=== PATIENT | female | born 1960 | race Caucasian/White ===

== ENCOUNTER 2017-03-15 14:50 | Emergency (ER) | payer OTHER ==
--- NOTE | ~2017-03-15 | ER ---
PATIENT'S NAME: [facility] AGE: 56 Y [address] ROOM: [place] [id number] LOCATION: [facility] ADMIT DATE: 03/15/2017 ER/Outpatient Report DISCHARGE DATE: FAMILY PHYSICIAN: Jodi Loyola MD ATTENDING PHYSICIAN: Miguel Lujan Time of Patient's Arrival: 1450 hours. Time of Patient's Evaluation: 1455 hours. CHIEF COMPLAINT: Scalp laceration. HISTORY OF PRESENT ILLNESS: This is a 56-year-old female who presents to the ER, who states that she was at a gas station putting air in her tire. She states that there were some workers at the gas station and their ladder fell over and struck her on top of the head. She states it did knock her down and she felt a little bit dazed, but she did not lose consciousness. She denies any neck or back pain. No nausea or vomiting. No other problems at this time. The patient states that she is not up to date on her tetanus shot. ALLERGIES: NO KNOWN ALLERGIES. MEDICATIONS: Unknown. PAST MEDICAL HISTORY: Hypertension. SOCIAL HISTORY: Drinks alcohol occasionally. Denies any smoking use. REVIEW OF SYSTEMS: CONSTITUTIONAL: Denies any change in weight or fatigue. MUSCULOSKELETAL: No weakness or myalgias. SKIN: She has a scalp laceration. PHYSICAL EXAMINATION: VITAL SIGNS: Height 5 feet 3 inches stated, weight 69 kg taken, blood pressure is 194/86, and saturations 98% on room air. [place] Coma Score is 15. GENERAL: Alert, calm, well-developed female, in mild distress. HEENT: Head: Normocephalic. Eyes: Pupils are equal and reactive to light. She does display moist mucous membranes. PATIENT'S NAME: CJ [facility] AGE: 56 Y [address] ROOM: [place], [place] [id number] LOCATION: [facility] ADMIT DATE: 03/15/2017 ER/Outpatient Report DISCHARGE DATE: FAMILY PHYSICIAN: Jodi Loyola MD ATTENDING PHYSICIAN: Miguel Lujan LUNGS: Clear to auscultation bilaterally. No wheezes or crackles. HEART: Regular rate and rhythm. EXTREMITIES: No clubbing or cyanosis. She has full range of motion of all limbs. SKIN: She has a 2-cm scalp laceration noted to the right side of her scalp. It is not actively bleeding at this time. MUSCULOSKELETAL: She has no cervical, thoracic, or lumbar tenderness with palpation. LABORATORY DATA: None were done. CT scan of the head was negative, reported by Radiology. IMPRESSION: A 2-cm scalp laceration. ASSESSMENT AND PLAN: We did cleanse the scalp with normal saline and repaired the laceration using declan. We also updated the patient on her tetanus shot. She tolerated this well. She did not want anything here for pain. We will dismiss her to home. I advised her to keep her head elevated. Tylenol or ibuprofen as needed for pain. Ice. Monitor symptoms. Follow up with primary care physician in 5-7 days for staple removal. The patient understands and agrees with care. MELISSA AVILES PA-C FOR MD CHOCO WILLS/taryn /[id number] d: 03/15/17 2247 t: 04/03/17 0902, OUTPATIENT REPORT
== END 2017-03-15 15:35 | disposition disaster alternative care site (69) ==
LOC: GACC 14:50
PROC: 0HQ0XZZ Repair Scalp Skin, External Approach (ICD-10-PCS; principal; 2017-03-15)
DX: S01.01XA Laceration without foreign body of scalp, initial encounter (principal); I10 Essential (primary) hypertension; W11.XXXA Fall on and from ladder, initial encounter